=== PATIENT | female | born 1950 | race Caucasian/White ===

== ENCOUNTER 2022-11-05 01:33 | Day surgery (SDC) | payer MEDICARE, SELFPAY ==
[2022-10-24 09:31] VITALS: BMI 29.9
--- NOTE | 2022-10-24 09:58 | PC.NURSE ---
Report to the Outpatient Waiting Room, entrance under the green pavilion located off [facility], at time _9:00AM on date _10/30/22 . Planned Procedure Time: __11:00AM . Time changes happen often and if your time is changed the preop area will call you the afternoon before. - You and your visitor will be asked to self-screen and do not enter if you have any COVID symptoms. - A mask is optional within the hospital at this time. Patients may have clear liquids (water, carbonated beverages, clear teas, apple juice) until 3 hours prior to surgery with a maximum of 20 ounces. - No food from midnight until time of surgery Take the following medications with a SIP of water the morning of surgery: __MECLIZINE NEEDED DO NOT STOP ANY OF YOUR OTHER PRESCRIPTION MEDICATIONS PRIOR TO SURGERY ?EXCEPT THE FOLLOWING Medications to discontinue per physician __HOLD ALL NSAIDS(IBUPROFEN) FOR 7 DAYS PRE-OP PER DR AVINA- LAST DOSE 10/23/22. HOLD ALL VITAMINS/SUPPLEMENTS 3 DAYS PRE-OP PER ANESTHESIA- LAST DOSE 10/26/22. Please no make-up, nail central african, hairspray, perfume, deodorant, or body powder the day of surgery. No jewelry (including any body piercings) or valuables the day of surgery, leave them at home. Please take a shower or bath the night before, or the morning of, surgery with an antibacterial soap. Wear comfortable, loose fitting clothing. Children are encouraged to wear pajamas. - Jewelry must be removed prior to entering the operating room. Rings and piercings that are not removed may be cut off. - The hospital will not accept responsibility for valuables. - Please leave all valuables, including medications, at home the day of surgery. If you are going home after surgery, a licensed carry all driver must drive you home. - NO public transportation without another adult if you receive anesthesia. - We recommend that an adult stay with you for 24 hours following discharge. - We also recommend that you do not drive, make important decision, drink alcoholic beverages, or take any drugs that were not prescribed by your health care provider for at least 24 hours after your discharge time. Follow any additional instructions given to you from your surgeon. If you or anyone in your household have experienced Covid symptoms in the past week, please notify your surgeon or the nurse liaison at the phone number below for possible testing. Telephone instructions given to __PATIENT and asked if any additional questions and then verbalized understanding. Patient advised to call surgeon office or pre surgery nurse liaison [phone] if any additional questions.
--- NOTE | 2022-10-30 12:57 | PC.NURSE ---
PT GIVEN NEW DATE AND TIME FOR SURGERY, DENIES CHANGES IN HEALTH OR MEDICATIONS, DENIES QUESTIONS.
--- NOTE | 2022-10-30 12:57 | PC.NURSE ---
Report to the Outpatient Waiting Room, entrance under the green pavilion located off [facility], at time 1100_ on date ___11/05/22____. Planned Procedure Time: _1300 _. Time changes happen often and if your time is changed the preop area will call you the afternoon before. - You and your visitor will be asked to self-screen and do not enter if you have any COVID symptoms. - A mask is optional within the hospital at this time. Patients may have clear liquids (water, carbonated beverages, clear teas, apple juice) until 3 hours prior to surgery with a maximum of 20 ounces. - No food from midnight until time of surgery - Infants may have breast milk until 4 hours before surgery, infant formula 6 hours prior to surgery. - Children will be allowed to drink immediately following surgery. If applicable, please bring a bottle or sippy cup to assist with drinking. Juice, water, soda, and popsicles are readily available. For infants on formula, please bring formula the day of surgery. Pacifiers are allowed. Take the following medications with a SIP of water the morning of surgery: MECLIZINE IF NEEDED DO NOT STOP ANY OF YOUR OTHER PRESCRIPTION MEDICATIONS PRIOR TO SURGERY ?EXCEPT THE FOLLOWING Medications to discontinue per physician HOLD ALL NSAIDS(IBUPROFEN)FOR 7 DAYS PRIOR TO SURGERY, HOLD ALL VITAMINS AND SUPPLIMENTS FOR 3DAYS_PRIOR TO SURGERY___ Date to take last dose Please no make-up, nail central african, hairspray, perfume, deodorant, or body powder the day of surgery. No jewelry (including any body piercings) or valuables the day of surgery, leave them at home. Please take a shower or bath the night before, or the morning of, surgery with an antibacterial soap. Wear comfortable, loose fitting clothing. Children are encouraged to wear pajamas. - Jewelry must be removed prior to entering the operating room. Rings and piercings that are not removed may be cut off. - The hospital will not accept responsibility for valuables. - Please leave all valuables, including medications, at home the day of surgery. If you are going home after surgery, a licensed line haul truck driver must drive you home. - NO public transportation without another adult if you receive anesthesia. - We recommend that an adult stay with you for 24 hours following discharge. - We also recommend that you do not drive, make important decision, drink alcoholic beverages, or take any drugs that were not prescribed by your health care provider for at least 24 hours after your discharge time. For Pediatric surgeries, we recommend two adults accompany the child home. Follow any additional instructions given to you from your surgeon. If you or anyone in your household have experienced Covid symptoms in the past week, please notify your surgeon or the nurse liaison at the phone number below for possible testing. Telephone instructions given the patient__and asked if any additional questions and then verbalized understanding. Patient advised to call surgeon office or pre surgery nurse liaison [phone] if any additional questions.
[2022-11-05] VITALS (16 sets, daily range): BP systolic 102–161; BP diastolic 49–85; PULSE 47–86; RESP 12–16; TEMP 36.1–36.6; O2SAT 94–100
--- NOTE | ~2022-11-05 | XR_ITS ---
EXAMINATION: XR surgery orthopedic DATE: 11/05/2022 13:00 CDT INDICATION: ORIF RT FOOT . TECHNIQUE: 3 fluoroscopic images of the right foot were obtained during ORIF right foot performed by the surgeon. I was not present in the operating room. Fluoroscopy exposure time was 24 seconds. Air K corey 0.1875 mGy. DAP 2.8309 mGym2. COMPARISON: None FINDINGS: Screw and plate fixation of the right fifth metatarsal. No unexpected radiopaque foreign body. IMPRESSION: Fluoroscopic documentation of ORIF right foot. Please refer to the operative note for complete proced ural details . Reviewed, dictated and finalized at location K. IMPRESSION: Fluoroscopic documentation of ORIF right foot. Please refer to the operative no te for complete procedural details .
[2022-11-05] MEDS: LACTATED RINGERS 1,000 ML 30 ML IV CONT ×2 (11:10→14:36)
--- NOTE | 2022-11-05 11:49 | WPDHPUPDATE1 ---
History and Physical Update Update Date/Time: 11/05/22 11:49 History and Physical has been reviewed, including an updated exam of the patient. There are NO changes in the patient's condition. Risks, benefits, and alternatives have been discussed and questions answered. Patient agrees to proceed with procedure.
--- NOTE | 2022-11-05 11:52 | WPDANESEPPF ---
Anes - Initial Pre Proc Eval Procedure: Operation Date: 11/05/22 13:00 Proposed Procedures p Excision Exostosis Right Foot - Hansel Maurice MD s Open Reduction Internal Fixation Right Fifth Metatarsal Fracture - Hansel Maurice MD Date/Time: 11/05/22 11:52 Surgeon: Hansel Maurice MD Pre Op Diagnosis: Rt Ft Exostosis, 5th Metatarsal Fx Patient Data Age: 72 Gender: F Height: 1.68 m Weight: 84 kg Allergies Allergy/AdvReac Type Severity Reaction Status Date / Time No Known Allergies Allergy Verified 11/05/22 11:55 Home Medications Medication Instructions Recorded Confirmed Type atorvastatin 20 mg tablet 20 mg PO DAILY 10/22/22 11/05/22 History biotin 5,000 mcg chewable tablet 5,000 mcg PO DAILY 10/22/22 11/05/22 History cholecalciferol (vitamin D3) 125 125 mcg PO DAILY 10/22/22 11/05/22 History mcg (5,000 unit) capsule lisinopril 10 mg tablet 10 mg PO HS 10/22/22 11/05/22 History meclizine 25 mg tablet 25 mg PO BID PRN Dizziness 10/22/22 11/05/22 History melatonin 5 mg capsule 5 mg PO QHS 10/22/22 11/05/22 History pantoprazole 40 mg tablet,delayed 40 mg PO QAM 10/22/22 11/05/22 History release zinc acetate 50 mg (zinc) capsule 50 mg PO HS 10/22/22 11/05/22 History (Galzin) acetaminophen 500 mg tablet 1,000 mg PO Q6H PRN Pain 10/24/22 11/05/22 History calcium carbonate 600 mg calcium 600 mg PO BID 10/24/22 11/05/22 History (1,500 mg) tablet (Calcium) ibuprofen 200 mg tablet 400 mg PO Q6H PRN Pain 10/24/22 11/05/22 History Patient hx anesthesia problems: none Family hx anesthesia problems: none Results Review: All pre-operative results and documents have been reviewed as part of the pre-operative evaluation. [facility] Past Medical History Medical History (Updated 11/05/22 @ 12:20 by Dany Henderson DO) Exostosis of right foot Fracture of fifth metatarsal bone of right foot History of revision of total replacement of left knee joint (~2015) Hyperlipidemia Hypertension Peripheral neuropathy Surgical History Surgical History History of appendectomy (~8) History of bladder surgery (~2010) History of cholecystectomy (~1974) History of left knee replacement (~2014) Family History Family History Father Family history of lung cancer Patient's father is Other Diabetes mellitus Familial primary pulmonary hypertension Family history of arthritis Family history of cardiac disorder Family history of cardiovascular disease Social History Social History Smoking packs per day: 1 Smoking cigarettes per day: 20.0 Years smoked: 20 Smoking pack-years: 20.00 Smoking status: Current every day smoker Tobacco type: cigarettes Smoking end date: 11/15/94 Alcohol intake: current Substance use: never Living arrangements: alone Spiritual care concerns: No Anes - Eval Final PreProcedure Day of Procedure 11/05/22 11:52 Patient weight: obese Heart: regular rate and rhythm Lungs: clear to auscultation Airway: Mallampati scale class II Neurological: alert and oriented Last oral intake: >/= 8 hours ASA classification: III Emergent: no Anesthetic plan: proceed Anesthesia type and monitoring: general LMA and standard monitoring Results Review: All pre-operative results and documents have been reviewed as part of the pre-operative evaluation. Informed Consent: The patient's anesthetic plan and its attendant risks and benefits were discussed with the patient/family/POA. Questions were solicited and answers provided to the satisfaction of the patient/family/POA.
[2022-11-05] MEDS: KETOROLAC 15 MG/ML VIAL (*BKC) IV PUSH (12:10)
[2022-11-05] MEDS: ACETAMINOPHEN 500 MG TABLET 1000 MG PO (12:10)
[2022-11-05] MEDS: ceFAZolin 2 GM/D5W 50 ML 2 GM/50 ML BAG IVPB (13:01)
[2022-11-05] MEDS: BUPivacaine HCL 0.5% PF 30 ML VIAL 10 ML INFILTRATE (13:32)
[2022-11-05] MEDS: fentaNYL CITRATE INJ (*CRX) 100 MCG/2 ML VIAL 25 MCG IV PUSH ×8 (15:12→16:04)
--- NOTE | 2022-11-05 15:18 | P.OP_ITS ---
Procedure Note - Detailed Date of Procedure 11/05/22 Pre-op Diagnosis Rt Ft Exostosis, 5th Metatarsal Fx Post-op Diagnosis Same Procedure Performed Excision exostosis right foot, open reduction internal fixation right 5th metatarsal fracture Surgeon Hansel Maurice MD Business Performance Advisor 1st sales support assistant Anesthesia General Indications 72-year-old woman with exostosis over the plantar aspect of the right foot which causes pressure and pain. Difficulty with shoe wear. In addition had an injury to the right foot with fracture of the 5th metatarsal in the [place] area. Previous fracture on left foot with delayed healing and difficulty with union of the fracture. Patient has elected for operative treatment on the right foot. Description of Procedure Patient identified in the preoperative holding. Informed consent given. Operative extremity marked. Patient received intravenous antibiotics. Patient brought to the operating room where underwent general anesthetic by anesthesia team. Positioned supine on operating room table. Time-out performed confirming the patient, site of the surgery and the plan. Right foot prepped and draped in the usual sterile fashion using a ChloraPrep skin solution. Foot ankle exsanguinated and a calf tourniquet inflated to 250 mmHg. The exostosis from the right foot was noted over the lateral border and the plantar aspect. Longitudinal incision made with 15 blade knife over the plantar lateral aspect. Hemostasis controlled electrocautery. Dissection carried down to the bone which the exostosis was visible. Sagittal saw used to remove the lateral plantar aspect. This was smoothed with a rongeur. Image intensification brought in and confirmed resection of the exostosis. Wound irrigated with saline and fascia closed with 2 O Vicryl interrupted suture. Subcutaneous tissue repaired with 3 0 Monocryl interrupted suture and skin repaired 4 0 nylon running suture. The fracture was then addressed. Starting at the base of the 5th metatarsal and extending along the lateral aspect incision was made with a 15 blade knife. Hemostasis controlled electrocautery. Soft tissue elevated dorsal and plantar word to allow exposure of the fracture. Fracture was well aligned but had no healing. Fracture site was cleared with an osteotome and a dental pick. This was then thoroughly irrigated. The exostosis from previous was morselized and packed into the fracture as bone graft. Fixation was then achieved with a proximal 5th metatarsal plate from the Arthrex 5th metatarsal fracture set combination of locking and nonlocking screws utilized. Good fixation noted. Image intensification confirmed alignment of the fracture and placement of the hardware. Wound thoroughly irrigated with saline. Local anesthetic with 0.5% Marcaine plain injected in the surrounding tissue. Fascia closed with 2 Vicryl interrupted suture. Subcutaneous tissue repaired with 3 0 Monocryl interrupted suture and the skin repaired with 4 O nylon running suture. Sterile dressing applied. Bulky dressing and splint applied. The patient was then woken from anesthesia, extubated and taken to the recovery room in stable condition. All sponge, needle, instrument counts were correct at the end of the case. Implants Arthrex 5th metatarsal fracture plate with screws. Estimated Blood Loss 5 Tourniquet Time 70 Drains No Packing No Pathology None sent Complications None Condition Stable Disposition PACU [facility] Billing Surgery - Charge Forward: Surgery Billing ([id number], [id number] RT)
--- NOTE | 2022-11-05 16:40 | ADMGEN ---
This patient, Kimberly Lawton, was admitted to [facility] Surg Room 312-01. Patient/family oriented to hospital policies and general routines including ID bracelet, bed and alarms, visiting hours, pain management, procedures, bathroom and other care routines, personal items, smoking policy, room service/diet, and visiting hours. Information on how to activate the Rapid Response Team has been discussed. Patient/Family are encouraged to report perceived risks to care and to ask questions if they do not understand what they are told or what they should do.
[2022-11-05] MEDS: SENNA/DOCUSATE SODIUM TABLET 2 TAB PO (17:57)
[2022-11-05] MEDS: CALCIUM CARBONATE (OSCAL) 500 MG TABLET PO (17:57)
[2022-11-05] MEDS: lisinopriL 10 MG TABLET PO (20:15)
[2022-11-05] MEDS: MELATONIN 5 MG TABLET PO (20:15)
[2022-11-05] MEDS: ceFAZolin 1 GM/NS 50 ML 1 GM/50 ML BAG IVPB (20:15)
[2022-11-06] MEDS: HYDROcodone/acetaminophen (*CRX) 5-325 MG TABLET 1 TAB PO ×2 (00:37→04:18)
[2022-11-06 00:49] VITALS: BP 147/53; PULSE 57; RESP 16; TEMP 36.3; O2SAT 96
[2022-11-06] MEDS: ceFAZolin 1 GM/NS 50 ML 1 GM/50 ML BAG IVPB ×2 (04:20→11:59)
[2022-11-06 04:44] VITALS: BP 124/51; PULSE 55; RESP 16; TEMP 36.1; O2SAT 96
--- NOTE | 2022-11-06 07:37 | WPDANESPN ---
Anes - Prog Note Post-Op Date/Time: 11/06/22 07:37 Cardiovascular status: normal Respiratory status: normal Airway patency: baseline Mental status: baseline Post-Op hydration status: normal Vital Signs: Last Vital Signs Temp 36.1 C L 11/06/22 04:44 Pulse 55 L 11/06/22 04:44 Resp 16 11/06/22 04:44 BP 124/51 L 11/06/22 04:44 Pulse Ox 96 11/06/22 04:44 O2 Del Method Room Air 11/05/22 20:33 O2 Flow Rate 6 11/05/22 14:50 Pain Score (VAS): 3/10 I/O: Intake & Output 11/05/22 11/05/22 11/06/22 15:59 23:59 07:59 Intake Total 50 250 Balance 50 250 Post-procedural complaints: none Patient Feedback: Patient satisfied with anesthetic care.
[2022-11-06] MEDS: PANTOPRAZOLE 40 MG TABLET PO (08:57)
[2022-11-06] MEDS: CHOLECALCIFEROL 1,000 UNITS TABLET 5000 UNITS PO (08:57)
[2022-11-06] MEDS: ZINC SULFATE 220 MG CAPSULE PO (08:58)
[2022-11-06] MEDS: ATORVASTATIN 20 MG TABLET PO (08:58)
[2022-11-06] MEDS: CALCIUM CARBONATE (OSCAL) 500 MG TABLET PO (09:31)
--- NOTE | 2022-11-06 10:07 | PM.DS ---
DS: Admitting Diagnosis Discharge Date 11/06/2022 Admitting Diagnosis right foot exostosis, 5th metatarsal fracture DS: Discharge Diagnosis Discharge Diagnosis (1) Exostosis of right foot: Code(s): M89.8X7 - Other specified disorders of bone, ankle and foot Status: Acute Assessment and Plan: status post surgical excision. In splint. Keep splint clean dry. Nonweightbearing with walker. Follow up in orthopedic office next week. (2) Fracture of fifth metatarsal bone of right foot: Qualifiers: Encounter type: subsequent encounter Fracture type: closed Fracture alignment: displaced Fracture healing: with routine healing Qualified Code(s): S92.351D - Displaced fracture of fifth metatarsal bone, right foot, subsequent encounter for fracture with routine healing Code(s): S92.351A - Displaced fracture of fifth metatarsal bone, right foot, initial encounter for closed fracture Status: Acute Assessment and Plan: status post surgical repair. In splint. Keep splint clean dry. Nonweightbearing with walker. Follow up in orthopedic office next week. DS: Summary Hospital Course Reason for hospitalization: Right foot Hospital Course: taken the operating room on November 05, underwent excision of exostosis right foot and repair of 5th metatarsal fracture. Admitted to the floor postoperatively. Medically stable. Did well with physical therapy with walker, nonweightbearing restriction. Tolerating diet. Pain controlled with oral medication. Cleared for discharge. Status at Discharge Functional status at discharge: uses cane/walker Overall status at discharge: patient is not back to baseline Time Spent with Patient Time attestation: Total time spent providing and/or coordinating discharge services: Exam Const: General: healthy appearing; No in distress or confusion Orientation/consciousness: patient oriented x3 and No confusion HENMT: Head: normal to inspection, normocephalic and atraumatic Eyes: Conjunctivae: conjunctivae normal Sclera: sclerae normal Resp: Effort & Inspection: normal respiratory effort and no audible wheezes Neuro: General: patient oriented x3 and No confusion Extrem: Right lower extremity: foot Details: normal capillary refill, motor-sensory exam Details: light-touch abnormal Location: in all toes ( neuropathy) and other ( splint in place. Toes pink and warm. Negative Homans) Left lower extremity: lower leg Details: no edema and other ( Negative Homans); no erythema Psych: Affect: normal affect Discharge Plan Discharge Attending physician on discharge: Gulshan Schmidt Discharging Clinician: Gulshan Schmidt Anticipated Discharge Date/Time: 11/06/22 13:00 Patient Disposition: Home, Self-Care Activity: no driving and follow weight bearing status Diet: as tolerated Wound Care Instructions: follow printed instructions Discharge Instructions: GULSHAN SCHMIDT M.D. [facility] [address] [place] [address] POST OPERATIVE DISCHARGE INSTRUCTIONS FOOT/ANKLE SURGERY Elevate the involved extremity on pillows. For the first 48 hours, make sure that the foot is above the level of your heart Carefully observe the exposed toes for evidence of swelling or discoloration. If the dressing is uncomfortable or tight, call the Dr?s office. Keep the dressing clean and dry. Remove dressing only as directed by doctor. Splint in place, keep clean and dry and leave in place until your follow up appointment. If the pain medication does not provide adequate relief, please call Dr?s office. Take other medication as prescribed. Please call Dr?s office to confirm follow-up appointment for 1 week. If you have any questions, please call the Dr?s office. Diet as tolerated. Activity:___XX Restrictions as follows: NO weight on operative leg; walker for ambulation
[2022-11-06] MEDS: IBUPROFEN 400 MG TABLET PO (12:07)
--- NOTE | 2022-11-06 13:28 | PCPTNOTE ---
On 11/06/22, the student, [Amanda Stinson], provided care and completed [employer] documentation on this patient. I have reviewed the student's documentation and agree with the findings.
== END 2022-11-06 13:55 | disposition home or self-care (01) ==
LOC: ANHSURGERY 15:09 → ANH3MEDSUR 11-06 09:28
PROVIDERS: PCP Family Medicine; Visit Provider Orthopaedic Surgery
PROC: (CPT 28485; principal; 2022-11-05 13:00)
PROC: (CPT 28485; 2022-11-05 13:00)
DX: S92.351A Displaced fracture of fifth metatarsal bone, right foot, initial encounter for closed fracture (principal); M89.8X7 Other specified disorders of bone, ankle and foot; X50.0XXA Overexertion from strenuous movement or load, initial encounter; I10 Essential (primary) hypertension; E78.5 Hyperlipidemia, unspecified; G62.9 Polyneuropathy, unspecified; F17.210 Nicotine dependence, cigarettes, uncomplicated; E66.9 Obesity, unspecified; Z68.31 Body mass index [BMI] 31.0-31.9, adult
CPT/HCPCS: 28485; 28124; 97110; 97161; 97165; 97530; 99199; A9270; J0690; J1100; J1885; J2405; J2704; J3010; J7120